=== PATIENT | male | born 1985 | race Caucasian/White ===

== ENCOUNTER 2021-07-15 08:58 | Emergency (ER) | payer SELFPAY ==
[~2021-07-15] VITALS: Ht 182.9 cm; Wt 79.5 kg
[2021-07-15 09:37] LABS: BASOPHILS % (AUTO) 0.2 % (0-1); EOSINOPHILS # (AUTO) 0.1 X10'3 (0-0.9); EOSINOPHILS % (AUTO) 0.6 % (0-6); HEMATOCRIT 44.8 % (42.0-52.0); HEMOGLOBIN 15.6 g/dl (14.0-17.9); LYMPHOCYTES # (AUTO) 1.4 X10'3 (1.1-4.8); LYMPHOCYTES % (AUTO) 15.5 % (21-51); MEAN CORPUSCULAR HEMOGLOBIN 33.8 PG (27.0-31.0); MEAN CORPUSCULAR HGB CONC 34.9 g/dL (33.0-36.5); MEAN CORPUSCULAR VOLUME 97.1 FL (78-98); MEAN PLATELET VOLUME 8.5 FL (7.4-10.4); MONOCYTES # (AUTO) 0.8 X10'3 (0-0.9); MONOCYTES % (AUTO) 8.8 % (2-12); NEUTROPHILS # (AUTO) 6.9 X10'3 (1.8-7.7); NEUTROPHILS % (AUTO) 74.9 % (42-75); PLATELET COUNT 173 X10'3 (140-440); RED BLOOD COUNT 4.62 X10'6 (4.70-6.10); RED CELL DISTRIBUTION WIDTH 13.1 % (11.5-14.5); WHITE BLOOD COUNT 9.2 X10'3 (4.5-11.0)
[2021-07-15 09:57] LABS: ALANINE AMINOTRANSFERASE 161 U/L (12-78); ALBUMIN 4.1 G/DL (3.4-5.0); ALKALINE PHOSPHATASE 95 IU/L (46-116); ANION GAP 10 (8-16); ASPARTATE AMINO TRANSFERASE 160 U/L (10-37); BILIRUBIN,TOTAL 0.6 MG/DL (0.1-1.0); BLOOD UREA NITROGEN 6 MG/DL (7-18); CALCIUM 9.5 MG/DL (8.5-10.1); CHLORIDE 100 MMOL/L (99-107); CREATININE 0.86 MG/DL (0.60-1.10); POTASSIUM 3.6 MMOL/L (3.5-5.1); SODIUM 136 MMOL/L (135-145); TOTAL PROTEIN 8.3 G/DL (6.4-8.2); eGFR > 90 ML/MIN
[2021-07-15 10:01] LABS: GLUCOSE 126 MG/DL (70-104)
[2021-07-15] MEDS ORDERED: thiamine 100mg/ml 2ml inj. IV ONE (10:40)
[2021-07-15] MEDS ORDERED: famotidine/PF 10 mg/ml inj IV ONE (10:40)
[2021-07-15] MEDS ORDERED: LORazepam 2 mg/ml vial IV ONE (10:40)
[2021-07-15] MEDS ORDERED: normal saline 1000ML IV soln IVB ONE (10:40)
[2021-07-15] MEDS ORDERED: cloNIDine 0.1 mg tablet PO ONE (10:40)
[2021-07-15] MEDS ORDERED: ondansetron/PF 4mg/2ml inj IV ONE (10:40)
[2021-07-15] MEDS ORDERED: folic acid 1mg/0.2ml inj IV ONE (10:40)
[2021-07-15] MEDS ORDERED: NO HOME MEDS (11:14)
[2021-07-15] MEDS ORDERED: ONDA4TAB12 PO (11:52)
[2021-07-15] MEDS ORDERED: PANT-47 PO (11:52)
[2021-07-15] MEDS ORDERED: GABA-530 PO (11:52)
[2021-07-15] MEDS ORDERED: LORA-269 PO (11:52)
[2021-07-15 12:52] VITALS: BP 136/89
== END 2021-07-15 12:53 | disposition home or self-care (01) ==
LOC: ER 08:59
DX: K29.20 Alcoholic gastritis without bleeding (principal); F10.20 Alcohol dependence, uncomplicated; F10.239 Alcohol dependence with withdrawal, unspecified; R07.89 Other chest pain; R10.13 Epigastric pain; R19.7 Diarrhea, unspecified; Z72.89 Other problems related to lifestyle; Z88.1 Allergy status to other antibiotic agents; Z79.899 Other long term (current) drug therapy; Y90.9 Presence of alcohol in blood, level not specified
CPT/HCPCS: 36415; 71045; 80053; 83880; 84484; 85025; 93005; 96361; 96374; 96375; 99285; J2060; J2405; J3411; J3490; J7030

== ENCOUNTER 2023-08-29 17:04 | Emergency (ER) | payer MEDICAID ==
[~2023-08-29] VITALS: Ht 182.9 cm; Wt 77.7 kg
[~2023-08-29 17:04] MED LIST: GABA-530 PO; LORA-269 PO; NO HOME MEDS; ONDA4TAB12 PO; PANT-47 PO
[2023-08-29 17:10] VITALS: TEMP 98.7; O2SAT 98
[2023-08-29] MEDS ORDERED: normal saline 1000ml 1,000 ML IV ONE (18:25)
[2023-08-29 18:30] VITALS: BP 136/86; PULSE 77; RESP 18
[2023-08-30] MEDS ORDERED: CHLO25CA10 PO (13:40)
[2023-08-30] MEDS ORDERED: MECO10005 PO (13:40)
[2023-08-30] MEDS ORDERED: FOLI1TAB27 PO (13:40)
[2023-08-30] MEDS ORDERED: THIA50TA10 PO (13:40)
[2023-08-30] MEDS ORDERED: OXYC5CAP22 PO (13:40)
== END 2023-08-29 18:58 | disposition left against medical advice (07) ==
LOC: ER 17:05
DX: S06.0X0A Concussion without loss of consciousness, initial encounter (principal); Z88.0 Allergy status to penicillin; Z88.8 Allergy status to other drugs, medicaments and biological substances; Z72.89 Other problems related to lifestyle; Z79.899 Other long term (current) drug therapy; Z79.2 Long term (current) use of antibiotics; W01.0XXA Fall on same level from slipping, tripping and stumbling without subsequent striking against object, initial encounter; Y93.89 Activity, other specified; Y92.89 Other specified places as the place of occurrence of the external cause; Y99.8 Other external cause status
CPT/HCPCS: 70450; 72125; 99284

== ENCOUNTER 2023-08-29 23:47 | Emergency (ER) | payer MEDICAID ==
[~2023-08-29] VITALS: Ht 182.9 cm; Wt 77.7 kg
[2023-08-30 00:02] VITALS: BP 137/91; PULSE 99; RESP 18; TEMP 98.4; O2SAT 99
[2023-08-30] MEDS ORDERED: CHLO25CA10 PO (13:40)
[2023-08-30] MEDS ORDERED: MECO10005 PO (13:40)
[2023-08-30] MEDS ORDERED: FOLI1TAB27 PO (13:40)
[2023-08-30] MEDS ORDERED: THIA50TA10 PO (13:40)
[2023-08-30] MEDS ORDERED: OXYC5CAP22 PO (13:40)
== END 2023-08-30 00:50 | disposition left against medical advice (07) ==
LOC: ER 23:48
DX: S09.90XA Unspecified injury of head, initial encounter (principal); Z53.21 Procedure and treatment not carried out due to patient leaving prior to being seen by health care provider; X58.XXXA Exposure to other specified factors, initial encounter; Y93.89 Activity, other specified; Y92.89 Other specified places as the place of occurrence of the external cause; Y99.8 Other external cause status

== ENCOUNTER 2023-08-30 07:04 | Emergency (ER) | payer MEDICAID ==
[~2023-08-30] VITALS: Ht 182.9 cm; Wt 77.7 kg
[2023-08-30 08:01] LABS: BASOPHILS # (AUTO) 0.1 X10'3 (0-0.2); BASOPHILS % (AUTO) 0.8 % (0-1); EOSINOPHILS # (AUTO) 0.1 X10'3 (0-0.9); EOSINOPHILS % (AUTO) 1.5 % (0-6); HEMATOCRIT 36.6 % (42.0-52.0); HEMOGLOBIN 12.7 g/dl (14.0-17.9); LYMPHOCYTES # (AUTO) 2.1 X10'3 (1.1-4.8); LYMPHOCYTES % (AUTO) 31.2 % (21-51); MEAN CORPUSCULAR HEMOGLOBIN 35.7 PG (27.0-31.0); MEAN CORPUSCULAR HGB CONC 34.7 g/dL (33.0-36.5); MEAN CORPUSCULAR VOLUME 102.8 FL (78-98); MEAN PLATELET VOLUME 8.3 FL (7.4-10.4); MONOCYTES # (AUTO) 0.8 X10'3 (0-0.9); MONOCYTES % (AUTO) 12.4 % (2-12); NEUTROPHILS # (AUTO) 3.7 X10'3 (1.8-7.7); NEUTROPHILS % (AUTO) 54.1 % (42-75); PLATELET COUNT 225 X10'3 (140-440); RED BLOOD COUNT 3.56 X10'6 (4.70-6.10); RED CELL DISTRIBUTION WIDTH 13.1 % (11.5-14.5); WHITE BLOOD COUNT 6.8 X10'3 (4.5-11.0)
[2023-08-30 08:23] LABS: ALANINE AMINOTRANSFERASE 234 U/L (12-78); ALBUMIN 3.7 G/DL (3.4-5.0); ALBUMIN/GLOBULIN RATIO 0.9 (1.1-1.5); ALKALINE PHOSPHATASE 111 IU/L (46-116); ANION GAP 11 (8-16); ASPARTATE AMINO TRANSFERASE 138 U/L (10-37); BILIRUBIN,TOTAL 0.5 MG/DL (0.1-1.0); BLOOD UREA NITROGEN 6 MG/DL (7-18); BUN/CREATININE RATIO 8.8 (10.0-20.0); CALCIUM 8.8 MG/DL (8.5-10.1); CHLORIDE 103 MMOL/L (99-107); CREATININE 0.68 MG/DL (0.60-1.10); GLUCOSE 110 MG/DL (70-104); POTASSIUM 3.6 MMOL/L (3.5-5.1); SODIUM 141 MMOL/L (135-145); TOTAL CARBON DIOXIDE 27.2 MMOL/L (24-32); TOTAL PROTEIN 7.8 G/DL (6.4-8.2); eCRCL 160 ML/MIN; eGFR > 90 ML/MIN
[2023-08-30 08:27] LABS: ETHANOL 317 MG/DL (<10)
[2023-08-30 08:42] LABS: PROTHROMBIN TIME 10.9 SECONDS (9.0-12.0)
[2023-08-30] MEDS: acetaminophen 325mg tablet PO ONE (09:16)
[2023-08-30 10:07] VITALS: TEMP 98
[2023-08-30] MEDS ORDERED: GADOTERATE MEGLUMINE 7.5 MMOL/15 ML VIAL IV ONE (10:12)
[2023-08-30 10:16] LABS: BILIRUBIN,URINE NEGATIVE (Neg); CLARITY,URINE CLEAR (Clear); COLOR,URINE YELLOW (Yellow); GLUCOSE, URINE NEGATIVE (Neg); KETONES,URINE NEGATIVE (Neg); LEUKOCYTE ESTERASE ,URINE NEGATIVE (Neg); NITRITES, URINE NEGATIVE (Neg); OCCULT BLOOD,URINE NEGATIVE (Neg); PROTEIN,URINE NEGATIVE (Neg); UROBILINOGEN,URINE 0.2 E.U/dL (0.2-1.0)
[2023-08-30 10:25] LABS: UA COLLECTION TYPE CLN CATCH MIDSTREAM
[2023-08-30 10:39] LABS: URINE AMPHETAMINE SCREEN NEGATIVE (Neg); URINE BARBITUATE SCREEN NEGATIVE (Neg); URINE BENZODIAZEPINES SCREEN NEGATIVE (Neg); URINE CANNABINOID SCREEN NEGATIVE (Neg); URINE COCAINE SCREEN NEGATIVE (Neg); URINE METHADONE SCREEN NEGATIVE (Neg); URINE PHENCYCLIDINE SCREEN NEGATIVE (Neg)
[2023-08-30] MEDS: morphine 4 MG/ML inj SYRINge IV ONE (11:12)
[2023-08-30] MEDS: diazepam inj 5 MG/ML inj. IV ONE (11:12)
[2023-08-30] MEDS ORDERED: iohexol 300mg/ml 100ml inj. ONE (11:53)
[2023-08-30] MEDS ORDERED: THIA50TA10 PO (13:40)
[2023-08-30] MEDS ORDERED: MECO10005 PO (13:40)
[2023-08-30] MEDS ORDERED: CHLO25CA10 PO (13:40)
[2023-08-30] MEDS ORDERED: FOLI1TAB27 PO (13:40)
[2023-08-30] MEDS ORDERED: OXYC5CAP22 PO (13:40)
[2023-08-30 13:56] VITALS: BP 124/84; PULSE 64; RESP 16; O2SAT 99
== END 2023-08-30 14:02 | disposition home or self-care (01) ==
LOC: ER 07:05
DX: S06.9XAA Unspecified intracranial injury with loss of consciousness status unknown, initial encounter (principal); R53.1 Weakness; F10.20 Alcohol dependence, uncomplicated; Z88.1 Allergy status to other antibiotic agents; Z88.8 Allergy status to other drugs, medicaments and biological substances; Z79.899 Other long term (current) drug therapy; W18.39XA Other fall on same level, initial encounter; Y93.89 Activity, other specified; Y92.89 Other specified places as the place of occurrence of the external cause; Y99.8 Other external cause status
CPT/HCPCS: 36415; 70553; 71260; 74177; 80053; 80305; 80320; 81003; 85025; 85610; 96374; 96375; 99285; A9575; J2270; J3360; J3490; Q9967